=== PATIENT | female | born 1980 | race Caucasian/White ===

== ENCOUNTER 2016-11-10 14:22 | Emergency (ER) | payer BC ==
--- NOTE | 2016-11-18 19:06 | ER ---
ADMIT: 11/10/2016 RM/LOC: ER [facility] MR#: [id number] [facility] [address] [place] [id number] [address] [place] [address] Emergency Room Report SEX: F AGE: 36 : 1980 DATE: 11/10/2016 HISTORY OF PRESENT ILLNESS: The patient is a 36-year-old female with a history of anxiety disorder and high blood pressure, compliant with her medications, came to the ER for high blood pressure and feeling dizzy in the morning. 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 The patient says every time her anxiety level increases, which recently increased, her blood pressure goes high too and sometimes she has dizziness or sometimes chest pain. At the moment, the patient denies any chest pain, shortness of breath, headaches, visual changes, or abdominal pain. The patient has no new focal neurological deficit. PHYSICAL EXAMINATION: VITAL SIGNS: Blood pressure is 115/85, the patient's heart rate is in mid 80s, the patient is afebrile, mildly agitated, but in no pain. HEAD AND NECK: Noncontributory. CHEST: Clear to auscultation bilaterally. HEART: Normal S1 and S2 without any murmurs. ABDOMEN: Soft. EXTREMITIES: No lower extremity swelling or tenderness. The rest of the physical exam is noncontributory. At this stage, the patient's blood pressure is controlled, the patient is compliant with her medications, the patient can be discharged to home, with close followup with the primary care doctor. Plan was discussed with the patient and she agreed upon it and she acknowledged that she understood it. Valdemar Salomon MD/ [place] JOB #: [id number] CC: Santos Porter MD, Attending Physician UNKNOWN, Family Physician
== END 2016-11-10 15:45 | disposition home or self-care (01) ==
LOC: ER 14:22
DX: I10 Essential (primary) hypertension (principal); F41.9 Anxiety disorder, unspecified; Z88.0 Allergy status to penicillin; Z79.899 Other long term (current) drug therapy